=== PATIENT | female | born 1965 | race Hispanic/Latino ===

== ENCOUNTER 2019-07-30 18:53 | Inpatient (IN) | payer SELFPAY ==
[2019-07-30] MEDS ORDERED: Fentanyl 100 MCG/2 ML VIAL ONE ×2 (19:28→20:42)
[2019-07-30 19:34] LABS: #Eosinphils 0.1 thou/uL (0.0-0.7); #Lymphocytes 2.6 thou/uL (1.20-3.40); #Monocytes 0.8 thou/uL (0.11-0.59); #Neutrophils 4.2 thou/uL (1.40-6.50); %Basophils 0.3 % (0.0-1.0); %Eosinophils 1.8 % (0.0-10.0); %Monocytes 9.8 % (0.0-10.0); %Neutrophils 54.1 % (42.0-75.0); Hemoglobin 13.6 g/dL (12.0-16.0); Mean Corpuscular HGB CONC 34.3 g/dL (32.0-36.0); Mean Corpuscular Hemoglobin 32.5 pg (27.0-31.0); Mean Corpuscular Volume 94.7 fL (78.0-98.0); Mean Platelet Volume 7.7 fL (7.4-10.4); Platelet Count 240 thou/uL (130-400); RBC Distribution Width 11.7 % (11.5-14.5); Red Blood Cell (RBC) Count 4.19 mill/uL (4.20-5.40); White Blood Cell (WBC) Count 7.7 thou/uL (4.8-10.8)
[2019-07-30 20:02] LABS: ALT (SGPT) 16 U/L (8-55); AST (SGOT) 15 U/L (5-34); Albumin 3.8 g/dL (3.5-5.0); Alkaline Phosphatase 77 U/L (40-110); Anion Gap 12 mmol/L (10-20); BUN (Urea Nitrogen) 20 mg/dL (9.8-20.1); Bilirubin, Total 0.3 mg/dL (0.2-1.2); Calc. Creatinine Clearance 0 mL/min (70-130); Calcium 8.3 mg/dL (7.8-10.44); Carbon Dioxide 26 mmol/L (22-29); Chloride 106 mmol/L (98-107); Estimated GFR-MDRD 63; Globulin 3.3 g/dL (2.4-3.5); Glucose 93 mg/dL (70-105); Lipase 50 U/L (8-78); Potassium 3.7 mmol/L (3.5-5.1); Protein, Total 7.1 g/dL (6.0-8.3); Sodium 140 mmol/L (136-145)
--- NOTE | 2019-07-30 20:04 | ULT ---
ULTRASOUND ABDOMEN LIMITED: (RIGHT UPPER QUADRANT) DATE: 07/30/2019 HISTORY: 53-year-old female with right upper quadrant abdominal pain COMPARISON: 07/13/2019 FINDINGS: Gallbladder:Again noted is the large number of tiny gallstones. Unlike previous study, now the gallbl adder is contracted around these gallstones. Wall thickness 2 mm, within normal limits. Positive tenderness over this region. Common duct: 3 mm. Liver:Normal size and echogenicity Pancreas:Mostly obscured by shadowing from bowel gas. Right kidney:No hydronephrosis. IMPRESSION: Cholelithiasis: Gallbladder is contracted around large number of tiny gallstones.
[2019-07-30] MEDS ORDERED: Acetaminophen 500 MG TAB ONE (20:43)
[2019-07-30] MEDS ORDERED: Ondansetron PF 4 MG/2 ML Vial ONE (20:48)
[2019-07-30] MEDS ORDERED: Acetaminophen 325 MG TAB PO PRN (22:08)
[2019-07-30] MEDS ORDERED: Ondansetron ODT 4 MG TAB SL PRN (22:08)
[2019-07-30] MEDS ORDERED: Ondansetron PF 4 MG/2 ML Vial IVP PRN (22:08)
[2019-07-30 22:53] VITALS: BMI 28.0
[2019-07-31] MEDS ORDERED: cefOXitin 2 GM in Sodium Chloride 0.9% 100 ML IVPB SCH ×2 (08:00→19:00)
--- NOTE | 2019-07-31 08:02 | HP ---
CHIEF COMPLAINT: Right upper quadrant abdominal pain. HISTORY: The patient is a 53-year-old female with a 3-month history of intermittent right upper quadrant pain, which has been much worse over the last 8 days. She has been in the emergency room 3 times. She reports nausea. No vomiting. No fever. The pain radiates to her back. PAST MEDICAL HISTORY: Otherwise healthy. PAST SURGICAL HISTORY: Status 3 sections and appendectomy. ALLERGIES: SHE TAKES NO MEDICATIONS. ALLERGIES: SHE HAS A SENSITIVITY TO MORPHINE CAUSING NAUSEA AND VOMITING. SOCIAL HISTORY: She is , unemployed. No tobacco. No alcohol. FAMILY HISTORY: Noncontributory. PHYSICAL EXAMINATION: VITAL SIGNS: Temperature 97.7, pulse 53, and blood pressure 96/59. HEENT: No jaundice. LUNGS: Clear. HEART: Regular rate and rhythm. ABDOMEN: Soft and nondistended. She is tender in the right upper quadrant. EXTREMITIES: Unremarkable. LABORATORY DATA: White count is 7.7, H and H are 13 and 39, platelet count is 240. Electrolytes are fine. LFTs normal. DIAGNOSTIC DATA: Ultrasound shows multiple cholelithiasis. ASSESSMENT: Severe biliary colic versus early cholecystitis. PLAN: Laparoscopic cholecystectomy. CONSENT: I have discussed planned procedure as well as risk of bleeding, infection, injury to bile duct, injury to bowel, need to open. She understands and gives informed consent. Job ID: [id number]
[2019-07-31] MEDS ORDERED: Ondansetron PF 4 MG/2 ML Vial ONE (11:11)
[2019-07-31] MEDS ORDERED: Ketorolac Tromethamine 30 MG/ML VIAL ONE (11:11)
[2019-07-31] MEDS ORDERED: EPHEDRINE 25 MG/5 ML SYRINGE ONE (11:11)
[2019-07-31] MEDS ORDERED: Glycopyrrolate 0.2 MG/ML 5 ML SYRINGE ONE (11:11)
[2019-07-31] MEDS ORDERED: PROPOFOL 200 MG/20 ML VIAL ONE (11:11)
[2019-07-31] MEDS ORDERED: Dexamethasone 20 MG/5 ML VIAL ONE (11:11)
[2019-07-31] MEDS ORDERED: Rocuronium Bromide 10 MG/ML (10ML VIAL) ONE (11:11)
[2019-07-31] MEDS ORDERED: Lidocaine 1% PF 5 ML VIAL ONE (11:11)
[2019-07-31] MEDS ORDERED: Lidocaine 1% w/Epinephrine 1:100K 20 ML VIAL ONE (11:47)
[2019-07-31] MEDS ORDERED: Bupivacaine 0.25% HCL 30 ML VIAL ONE (11:47)
[2019-07-31] MEDS ORDERED: Fentanyl 100 MCG/2 ML VIAL ONE ×2 (11:56→13:51)
[2019-07-31] MEDS ORDERED: SUGAMMADEX SODIUM 200 MG/2 ML VIAL ONE (13:30)
[2019-07-31] MEDS ORDERED: Calcium Carbonate 500 MG ChewTAB PO PRN (13:31)
[2019-07-31] MEDS ORDERED: Dextrose 5% in Water 1,000 ML IV PRN (13:31)
[2019-07-31] MEDS ORDERED: hydrALAZINE 20 MG/ML VIAL SLOW IVP PRN (13:31)
[2019-07-31] MEDS ORDERED: Promethazine HCl 25 MG/ML VIAL IM PRN (13:31)
[2019-07-31] MEDS ORDERED: Ondansetron PF 4 MG/2 ML Vial IVP PRN (13:31)
[2019-07-31] MEDS ORDERED: HYDROcodone/Acetaminophen 10/325 mg Tablet PO PRN ×2 (13:31)
[2019-07-31] MEDS ORDERED: Mag-Al 1200 mg/1200 mg/30 ML UDCUP PO PRN (13:31)
[2019-07-31] MEDS ORDERED: Dextrose 50% Abboject 50 ML SYRINGE SLOW IVP PRN (13:31)
[2019-07-31] MEDS ORDERED: Ondansetron HCl/PF 4 MG/2 ML Vial IVP PRN (13:45)
[2019-07-31] MEDS ORDERED: Meperidine HCl/PF 25 MG/ML VIAL SLOW IVP PRN (13:45)
[2019-07-31] MEDS ORDERED: Promethazine HCl 25 MG/ML VIAL SLOW IVP PRN (13:45)
[2019-07-31] MEDS ORDERED: HYDROmorphone 2 MG/ML VIAL SLOW IVP PRN (13:45)
[2019-07-31] MEDS: D5 1/2 NS w/20 mEq KCL 1,000 ML IV SCH ×2 (17:02→23:49)
[2019-07-31] MEDS: cefOXitin Sodium/Dextrose,Iso 2 GM in Premix Bag 1 BAG IVPB SCH (19:48)
[2019-07-31] MEDS ORDERED: Famotidine/PF 20 mg/2ml Vial SLOW IVP SCH (21:00)
[2019-07-31] MEDS ORDERED: Famotidine 20 MG TAB PO SCH (21:00)
[2019-07-31 23:50] VITALS: TEMP 98.3
[2019-08-01] MEDS: cefOXitin Sodium/Dextrose,Iso 2 GM in Premix Bag 1 BAG IVPB SCH (03:22)
[2019-08-01] MEDS: D5 1/2 NS w/20 mEq KCL 1,000 ML IV SCH ×2 (03:23→05:25)
[2019-08-01 05:39] LABS: #Lymphocytes 1.2 thou/uL (1.20-3.40); #Monocytes 0.8 thou/uL (0.11-0.59); %Basophils 0.1 % (0.0-1.0); %Lymphocytes 10.1 % (21.0-51.0); %Monocytes 6.7 % (0.0-10.0); Hemoglobin 13.1 g/dL (12.0-16.0); Mean Corpuscular HGB CONC 31.8 g/dL (32.0-36.0); Mean Corpuscular Hemoglobin 30.1 pg (27.0-31.0); Mean Corpuscular Volume 94.7 fL (78.0-98.0); Mean Platelet Volume 7.7 fL (7.4-10.4); Platelet Count 242 thou/uL (130-400); RBC Distribution Width 11.6 % (11.5-14.5); Red Blood Cell (RBC) Count 4.36 mill/uL (4.20-5.40); White Blood Cell (WBC) Count 12.1 thou/uL (4.8-10.8)
[2019-08-01 05:59] LABS: ALT (SGPT) 45 U/L (8-55); AST (SGOT) 45 U/L (5-34); Albumin 3.5 g/dL (3.5-5.0); Alkaline Phosphatase 64 U/L (40-110); Anion Gap 12 mmol/L (10-20); BUN (Urea Nitrogen) 10 mg/dL (9.8-20.1); Bilirubin, Total 0.5 mg/dL (0.2-1.2); Calc. Creatinine Clearance 76 mL/min (70-130); Calcium 8.4 mg/dL (7.8-10.44); Carbon Dioxide 23 mmol/L (22-29); Chloride 107 mmol/L (98-107); Estimated GFR-MDRD 61; Glucose 163 mg/dL (70-105); Potassium 4.5 mmol/L (3.5-5.1); Protein, Total 6.5 g/dL (6.0-8.3); Sodium 137 mmol/L (136-145)
--- NOTE | 2019-08-01 06:35 | OP ---
DATE OF PROCEDURE: 07/31/2019 PREOPERATIVE DIAGNOSIS: Acute cholecystitis. PROCEDURE PERFORMED: Laparoscopic cholecystectomy. INDICATIONS: The patient is a 53-year-old female who has been in the emergency room 3 times with severe right upper quadrant pain. Ultrasound showed multiple cholelithiasis. FINDINGS: Distended gallbladder with multiple gallstones, small caliber cystic duct. DESCRIPTION OF PROCEDURE: After informed consent was obtained, the patient was taken to the operating room, given general endotracheal anesthesia, placed in supine position. Abdomen was prepped and draped in the usual fashion. Local anesthesia was infiltrated subcutaneously and deep. A 5 mm incision was performed in the right lateral abdomen and a Veress needle inserted. Drop test performed. Pneumoperitoneum was created to a volume of 2 L of carbon dioxide. Utilizing a bladeless 5-mm trocar and 0-degree laparoscope, direct visual entry in the abdominal cavity was performed. Pneumoperitoneum was created to a pressure of 15 mmHg. A 2nd 5-mm port was placed and a laparoscopic lysis of adhesions was performed to free up the adhesions to the midline abdominal wall. Then, a 12-mm incision made just above the umbilicus in the midline and a blunt 12-mm trocar inserted. The patient placed in steep reverse Trendelenburg position and a 3rd 5-mm port was placed subcostal. The gallbladder grasped, advanced superiorly. The peritoneum dissected to expose the cystic duct and cystic artery in critical view. The duct and artery were triply ligated with hemoclips and divided. The gallbladder removed from its fossa utilizing electrocautery, removed from the abdomen through the umbilical port. Hemostasis was assured. Trocars and retractors were removed. The fascia closed with interrupted 0 Vicryl suture. Skin closed with interrupted 4-0 Rapide. Dermabond applied. The patient tolerated the procedure well, transferred to Recovery in good condition. Sponge and needle count verified correct x2. Job ID: [id number]
[2019-08-01 07:55] VITALS: BP 99/60
[2019-08-01] MEDS ORDERED: Enoxaparin Sodium 40 MG/0.4 ML SYRINGE SC SCH (09:00)
--- NOTE | 2019-08-01 10:07 | DIS ---
DATE OF ADMISSION: 07/30/2019 DATE OF DISCHARGE: 08/01/2019 DISCHARGE DIAGNOSIS: Symptomatic cholelithiasis. PROCEDURE DURING ADMISSION: Laparoscopic cholecystectomy. HOSPITAL COURSE: The patient was admitted, taken to the operating room, where she underwent a laparoscopic cholecystectomy. Postoperatively, she is doing well, tolerating liquids well. Pain is controlled on p.o. medications. Discharged home on hydrocodone and Zofran. She will follow up with me in 2 weeks. Job ID: [id number]
== END 2019-08-01 09:20 | disposition home or self-care (01) | DRG 419 ==
LOC: ERS 18:53 → SURG A 20:39
PROVIDERS: ADMIT Surgery; ATTEND Surgery
PROC: 0FT44ZZ Resection of Gallbladder, Percutaneous Endoscopic Approach (ICD-10-PCS; principal; 2019-07-31)
DX: K80.00 Calculus of gallbladder with acute cholecystitis without obstruction (principal); Z90.49 Acquired absence of other specified parts of digestive tract; Z88.5 Allergy status to narcotic agent
CPT/HCPCS: 36415; 76705; 80053; 83690; 85025; 88304; 96374; 96375; 96376; J0694; J1100; J1885; J2001; J2405; J2704; J3010; J3480; S0020; S0028